=== PATIENT | female | born 1960 | race Caucasian/White ===

== ENCOUNTER 2017-03-10 11:47 | Emergency (ER) | payer SELFPAY ==
[2017-03-10] MEDS ORDERED: NS 0.9% 1000 ML* 1,000 ML IV ONE (12:27)
[2017-03-10 12:57] LABS: Hematocrit 40 % (35-47); Hemoglobin 13.7 g/dl (12.0-16.0); Mean Corpuscular HGB Conc 34 g/dl (31-36); Mean Corpuscular Hemoglobin 31 pg (27-31); Mean Corpuscular Volume 92 fL (80-97); Mean Platelet Volume 7 um3 (7.4-10.4); Red Blood Count 4.37 10^6/ul (4.0-5.4); Red Cell Distribution Width 13 % (10.5-15); White Blood Count 7.1 10^3/ul (3.5-10.8)
[2017-03-10 13:13] LABS: ALT 16 U/L (7-52); AST 17 U/L (13-39); Alkaline Phosphatase 45 U/L (34-104); Amylase 59 U/L (29-103); Anion Gap 5 mmol/L (2-11); BUN/Creatinine Ratio 17.6 (8-20); Blood Urea Nitrogen 18 mg/dL (6-24); CO2 Carbon Dioxide 26 mmol/L (22-32); Chloride 106 mmol/L (101-111); Creatine Kinase 81 U/L (10-223); EGFR African American 71.3 (>60); EGFR Non-African American 55.5 (>60); Globulin 2.4 g/dL (2-4); Glucose 116 mg/dL (70-100); Lipase 21 U/L (11.0-82.0); Potassium 4.1 mmol/L (3.5-5.0); Sodium 137 mmol/L (133-145); Total Protein 6.4 g/dL (6.4-8.9)
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
[2017-03-10 13:36] LABS: Urine Bacteria Absent (Absent); Urine Bilirubin Negative (Negative); Urine Glucose Negative (Negative); Urine Nitrite Negative (Negative)
[2017-03-10 13:37] LABS: Alcohol < 10 mg/dL (<10)
[2017-03-10 13:54] LABS: Benzodiazepine Urine Screen None Detected (None Detect)
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
[2017-03-10] MEDS ORDERED: Acetaminophen TAB* 325 MG PO ONE (14:33)
[2017-03-10 15:23] VITALS: BP 127/82
== END 2017-03-10 15:28 | disposition home or self-care (01) ==
LOC: ED 11:47
DX: S16.1XXA Strain of muscle, fascia and tendon at neck level, initial encounter (principal); S00.432A Contusion of left ear, initial encounter; R51 Headache; V49.9XXA Car occupant (driver) (passenger) injured in unspecified traffic accident, initial encounter; Y93.9 Activity, unspecified; Y92.9 Unspecified place or not applicable
CPT/HCPCS: 36415; 70450; 71010; 72125; 80053; 80307; 80320; 81003; 81015; 82150; 82550; 83605; 83690; 84484; 85025; 85610; 86850; 86900; 86901; 93005; 96360; 99283; G0480